=== PATIENT | female | born 1950 | race Caucasian/White ===

== ENCOUNTER 2022-05-18 10:58 | Day surgery (SDC) | payer MEDICARE, OTHER ==
[~2022-05-18 10:58] MED LIST: Lactated Ringers 1,000 ML IV SCH
[2022-05-18] MEDS ORDERED: Midazolam 1 MG/ML 2 ML SDV ONE (12:53)
[2022-05-18] MEDS ORDERED: fentaNYL 100 MCG/2 ML SDV ONE (12:53)
[2022-05-18] MEDS ORDERED: Propofol 200 MG/20 ML SDV ONE (12:53)
== END 2022-05-18 14:15 | disposition home or self-care (01) ==
LOC: VM.SDS 10:58
PROVIDERS: ATTEND Family Medicine
DX: Z12.11 Encounter for screening for malignant neoplasm of colon (principal); D12.0 Benign neoplasm of cecum; E66.9 Obesity, unspecified; K21.9 Gastro-esophageal reflux disease without esophagitis; F41.9 Anxiety disorder, unspecified; Z68.33 Body mass index [BMI] 33.0-33.9, adult; Z98.890 Other specified postprocedural states; Z79.899 Other long term (current) drug therapy; Z88.5 Allergy status to narcotic agent
CPT/HCPCS: 00811; 45380; J2250; J2704; J3010; J7120; 88305